=== PATIENT | female | born 1965 | race Caucasian/White ===

== ENCOUNTER → 2016-05-22 | Emergency (ER) | payer OTHER ==
[~2016-05-22] VITALS: Ht 152.4 cm; Wt 56.5 kg
[~2016-05-22] MED LIST: AMLO-26 PO; DOCU-144 PO; HYDR-906 PO; HYDR25SU23 PR; HYDR26CR PR; IBUP800T25 PO; SIMV10TA PO
[2016-05-22 21:07] VITALS: Ht 152.4 cm; Wt 56.5 kg
--- NOTE | 2016-05-23 06:15 | ERD ---
DATE OF SERVICE: HISTORY OF PRESENT ILLNESS: The patient is a 51-year-old female coming in complaining of rectal ble eding for the last 3 weeks. The patient states that after she has a bowel movement, she notices nidia ght red blood on the paper. She does not feel that she strains more than normal. She has some pain when she passes stool. She has not used medication around the rectum, no purulence and denies any abdominal pain or fevers. Denies vomiting, denies changes in urination. PAST MEDICAL HISTORY: Hypertension. ALLERGIES: PENICILLIN. SURGICAL HISTORY: Hysterectomy. REVIEW OF SYSTEMS: A 12-point review of systems was done. Refer to HPI for positives, all other sy stems negative. PHYSICAL EXAMINATION VITAL SIGNS: Temperature is 97.9, pulse 85, blood pressure 151/73, respiratory rate 18, O2 saturati on 100% on room air. Pain intensity of 5/10. GENERAL: The patient is well-appearing, well-nourished, no acute distress. HEART: Regular rate and rhythm. No murmurs, clicks, rubs or gallops. No S3 or S4. CHEST: Clear to auscultation bilaterally. There are no rales, wheezes or rhonchi. HEENT: Atraumatic. Conjunctivae are pink. Pupils equal, round, and reactive to light. There is no s cleral icterus. Tympanic membranes clear bilaterally. Oropharynx clear. No nystagmus or photophobia . ABDOMEN: Soft, nontender and nondistended. Good bowel sounds. No rebound or guarding. No gross misael tonitis. No gross organomegaly or masses. No Pfeiffer sign or McBurney point tenderness. RECTAL: The patient has multiple hemorrhoid skin tags with no sign of thrombosed hemorrhoid. There is no tenderness to palpation around the rectum. No fluctuance and no purulence extracted from the anus. No pain with internal palpation of the rectum. DIAGNOSIS: Hemorrhoids. MEDICAL DECISION MAKING: I have low suspicion for perirectal or perianal abscess. The patient's bl eeding is likely associated with hemorrhoids. I have low suspicion for diverticulitis or colitis. The patient does not have severe abdominal pain on palpation. Vital signs are stable. The patient' s bleeding is noted to be bright red, it is likely associated with hemorrhoids. DISCHARGE: The patient is discharged stable. The patient is given a prescription for Anusol, Colac e, and preparation-H, and told to follow up with primary care within 1 to 2 days for reevaluation. The patient was told if symptoms progress or worsen, to return to the ER. All other questions answe red at time of discharge. Discharge summary given at the time of departure. The patient understood and complied with plan. Dictated By: LISA RODRÍGUEZ/JOSSELIN Conf#: [id number] DID#: [id number]
== END | disposition home or self-care (01) ==
LOC: FTE 20:07
DX: K64.4 Residual hemorrhoidal skin tags (principal); I10 Essential (primary) hypertension
CPT/HCPCS: 99284

== ENCOUNTER 2016-06-13 09:01 | Emergency (ER) | payer OTHER ==
[~2016-06-13] VITALS: Ht 157.5 cm; Wt 54.1 kg
[2016-06-13 09:04] VITALS: Ht 157.5 cm; Wt 54.1 kg
[2016-06-13 09:26] VITALS: TEMP 97.6
[2016-06-13] MEDS ORDERED: LIDOCAINE/MYLANTA 40 ML BTL PO STA (09:27)
[2016-06-13 09:52] LABS: ADD SCAN DIFF NO
[2016-06-13 09:59] LABS: BASOPHILS % 0.6 % (0.0-2.0); EOSINOPHILS # 0.1 10^3/ul (0.0-0.5); EOSINOPHILS % 1.2 % (0.0-7.0); HEMATOCRIT 44.7 % (37.0-47.0); HEMOGLOBIN 15.4 g/dl (12.0-16.0); LYMPHOCYTES # 2.2 10^3/ul (0.8-2.9); LYMPHOCYTES % 30.2 % (15.0-51.0); MEAN CORPUSCULAR HEMOGLOBIN 30.3 pg (29.0-33.0); MEAN CORPUSCULAR HGB CONC 34.5 g/dl (32.0-37.0); MEAN CORPUSCULAR VOLUME 87.8 fl (82.0-101.0); MEAN PLATELET VOLUME 11.9 fl (7.4-10.4); MONOCYTE # 0.6 10^3/ul (0.3-0.9); MONOCYTES % 8.4 % (0.0-11.0); NEUTROPHIL # 4.3 10^3/ul (1.6-7.5); NEUTROPHILS % 59.3 % (39.0-77.0); PLATELET COUNT 205 10^3/UL (140-415); RED BLOOD COUNT 5.09 10^6/ul (4.20-5.40); RED CELL DISTRIBUTION WIDTH 12.2 % (11.5-14.5); WHITE BLOOD COUNT 7.2 10^3/ul (4.8-10.8)
--- NOTE | 2016-06-13 10:06 | RADRPT ---
PROCEDURE: US Abdomen. CLINICAL INDICATION: abdominal pain TECHNIQUE: Multiple real-time images were acquired of the patient's right upper quadrant abdomen a nd retroperitoneum utilizing a high resolution transducer. COMPARISON: 05/20/15 FINDINGS: The liver demonstrates normal echogenicity. The liver is normal in size and no focal solid lesions are seen. The liver measures 13.6 cm in length. The portal vein is patent with normal direction of f low. No intrahepatic biliary dilatation is seen. No gallstones are identified within the gallbladder. There is no pericholecystic fluid or gallbladd er wall thickening. The common bile duct measures 3 mm in maximal dimension. The visualized portions of the pancreas are unremarkable. The tail of the pancreas is not seen. No free fluid is identified. The right kidney is normal in size, and demonstrate normal echogenicity and cortical thickness. The right kidney measures 10.2 cm in long dimension. There is no evidence of hydronephrosis. There are no kidney stones. RPTAT: AA IMPRESSION: Unremarkable right upper quadrant abdominal ultrasound. .Deo Hernandez MD, Date Time Electronically viewed and signed by .Deo Hernandez MD, on 06/13/2016 10:06 .S/
[2016-06-13 10:09] LABS: ALBUMIN 4.5 g/dl (3.3-4.9); CHLORIDE 104 mmol/L (97-110); POTASSIUM 3.4 mmol/L (3.5-5.1); SODIUM 143 mmol/L (135-144)
[2016-06-13 10:11] LABS: ANION GAP 14 (8-16); CARBON DIOXIDE 28 mmol/L (21-31); CREATININE 0.61 mg/dl (0.44-1.00)
[2016-06-13 10:12] LABS: ALANINE AMINOTRANSFERASE 26 IU/L (13-69); ALBUMIN/GLOBULIN RATIO 1.18; ALKALINE PHOSPHATASE 108 IU/L (42-121); ASPARTATE AMINO TRANSFERASE 22 IU/L (15-46); BILIRUBIN,INDIRECT 0.4 mg/dl (0-1.1); BILIRUBIN,TOTAL 0.4 mg/dl (0.2-1.3); BLOOD UREA NITROGEN 14 mg/dl (7-20); CALCIUM 9.4 mg/dl (8.4-10.2); GLUCOSE 108 mg/dl (70-220); TOTAL PROTEIN 8.3 g/dl (6.1-8.1)
[2016-06-13 10:13] LABS: ADD UMIC YES; URINE BILIRUBIN (Dip) NEGATIVE (NEGATIVE); URINE BLOOD (Dip) 2+ (NEGATIVE); URINE COLOR LT. YELLOW (YELLOW); URINE GLUCOSE (Dip) NEGATIVE (NEGATIVE); URINE KETONES (Dip) NEGATIVE (NEGATIVE); URINE LEUKOCYTE ESTERASE (Dip) NEGATIVE (NEGATIVE); URINE NITRITE (Dip) NEGATIVE (NEGATIVE); URINE TOTAL PROTEIN (Dip) NEGATIVE (NEGATIVE); URINE UROBILINOGEN (Dip) 0.2 E.U./dL (0.1-1.0)
[2016-06-13 10:23] LABS: URINE RBCS 0-2 /HPF (0)
[2016-06-13 10:38] LABS: TROPONIN-I < 0.012 ng/ml (0.00-0.12)
[2016-06-13] MEDS ORDERED: HYDR-906 PO (11:00)
[2016-06-13] MEDS ORDERED: ONDA4TAB14 PO (11:00)
[2016-06-13] MEDS ORDERED: PANT40TA3 PO (11:01)
--- NOTE | 2016-06-13 11:01 | ERD ---
ER Documentation Chief Complaint Date/Time DATE: 06/13/16 TIME: 11:00 Chief Complaint ap/ burnning sensation x 5 days HPI Patient is a 51-year-old female with gastritis and hypertension who presents with abdominal pain. She has had epigastric pain for the past 4 days. She said that she has "gastritis". The pain comes and goes. She said that she tried "a pill" yesterday but does not know what the pill was. She has had no fevers. She has no nausea, vomiting, or diarrhea. Upon review of old medical records this the patient's ninth visit to the ER since 2007. Her primary doctor is Dr. Dillon Lai. ROS All systems reviewed and are negative except as per history of present illness. Medications Home Meds Active Scripts Pantoprazole* (Protonix*) 40 Mg Tablet.dr, 40 MG PO DAILY, #20 TAB Prov:JASWANT MCCORMACK MD 06/13/16 Ondansetron (Ondansetron Odt) 4 Mg Tab.rapdis, 4 MG PO Q6H Y for NAUSEA AND/OR VOMITING, #30 TAB Prov:JASWANT MCCORMACK MD 06/13/16 Hydrocodone/Acetaminophen ([place] 5-325 Tablet) 1 Each Tablet, 1 TAB PO Q6H Y for PAIN, #7 TAB Prov:JASWANT MCCORMACK MD 06/13/16 Hydrocortisone* Rectal (Preparation H* Cream) 1% - 26 Gm Cream.gm., 1 APPLIC GA BID, #1 TUB Prov:BRANDEE PIRES PA-C 05/22/16 Hydrocortisone Acetate (Anusol-Hc) 25 Mg Supp.rect, 1 SUPP GA QHS Y for HEMORROID PAIN/ITCHING, #12 SUPP.RECT Prov:BRANDEE PIRES PA-C 05/22/16 Ibuprofen* (Motrin*) 800 Mg Tab, 800 MG PO Q6H Y for PAIN AND OR ELEVATED TEMP, #30 TAB Prov:LISA PINEDA DO 03/14/16 Reported Medications Simvastatin* (Zocor*) 10 Mg Tablet, 10 MG PO QHS, #30 TAB 03/14/16 Amlodipine-Benazepril (Amlodipine-Benazepril) 5-10 Mg Tablet, 1 CAP PO DAILY, # 30 CAP 08/30/15 Discontinued Scripts Docusate Sodium* (Colace*) 100 Mg Capsule, 100 MG PO DAILY, #30 CAP Prov:BRANDEE PIRES PA-C 05/22/16 Hydrocodone/Acetaminophen ([place] 5-325 Tablet) 1 Each Tablet, 1 TAB PO Q6H Y for PAIN, #10 TAB Prov:LISA PINEDA 03/14/16 Allergies Allergies: Coded Allergies: Penicillins (Verified Allergy, Unknown, 03/14/16) PMhx/Soc History of Surgery: Yes (HYSTERECTOMY) Anesthesia Reaction: No Hx Neurological Disorder: No Hx Respiratory Disorders: No Hx Cardiac Disorders: Yes (HTN , HIGH CHOLESTEROL ) Hx Psychiatric Problems: No Hx Miscellaneous Medical Probl: No Hx Alcohol Use: No Hx Substance Use: No Hx Tobacco Use: No FmHx Family History: No diabetes Physical Exam Vitals Vital Signs Date Time Temp Pulse Resp B/P Pulse Ox O2 Delivery O2 Flow Rate FiO2 06/13/16 11:17 79 16 133/73 100 06/13/16 09:26 97.6 96 11 131/74 100 Room Air 06/13/16 09:04 98.1 82 18 148/64 99 Physical Exam Const: Mild distress secondary to pain Head: Atraumatic Eyes: Normal Conjunctiva ENT: Normal External Ears, Nose and Mouth. Neck: Full range of motion..~ No meningismus. Resp: Clear to auscultation bilaterally Cardio: Regular rate and rhythm, no murmurs Abd: Soft, epigastric pain without rebound or guarding Skin: No petechiae or rashes Back: No midline or flank tenderness Ext: No cyanosis, or edema Neur: Awake and alert Psych: Normal Mood and Affect Result Diagram: 06/13/1693606/13/16936 Results 24 hrs Laboratory Tests Test 06/13/16 09:37 White Blood Count 7.210^3/ul Red Blood Count 5.0910^6/ul Hemoglobin 15.4g/dl Hematocrit 44.7% Mean Corpuscular Volume 87.8fl Mean Corpuscular Hemoglobin 30.3pg Mean Corpuscular Hemoglobin Concent 34.5g/dl Red Cell Distribution Width 12.2% Platelet Count 24638^3/UL Mean Platelet Volume 11.9fl Neutrophils % 59.3% Lymphocytes % 30.2% Monocytes % 8.4% Eosinophils % 1.2% Basophils % 0.6% Nucleated Red Blood Cells % 0.0/100WBC Neutrophils # 4.310^3/ul Lymphocytes # 2.210^3/ul Monocytes # 0.610^3/ul Eosinophils # 0.110^3/ul Basophils # 0.010^3/ul Nucleated Red Blood Cells # 0.010^3/ul Urine Color LT. YELLOW Urine Clarity CLEAR Urine pH 6.5 Urine Specific [place] 1.015 Urine Ketones NEGATIVE Urine Nitrite NEGATIVE Urine Bilirubin NEGATIVE Urine Urobilinogen 0.2 E.U./dL Urine Leukocyte Esterase NEGATIVE Urine Microscopic RBC 0-2/HPF Urine Microscopic WBC 0-2/HPF Urine Hemoglobin 2+ Urine Glucose NEGATIVE% Urine Total Protein NEGATIVE Sodium Level 143mmol/L Potassium Level 3.4mmol/L Chloride Level 104mmol/L Carbon Dioxide Level 28mmol/L Anion Gap 14 Blood Urea Nitrogen 14mg/dl Creatinine 0.61mg/dl Glucose Level 108mg/dl Calcium Level 9.4mg/dl Total Bilirubin 0.4mg/dl Direct Bilirubin 0.00mg/dl Indirect Bilirubin 0.4mg/dl Aspartate Amino Transf (AST/SGOT) 22IU/L Alanine Aminotransferase (ALT/SGPT) 26IU/L Alkaline Phosphatase 108IU/L Troponin I < 0.012ng/ml Total Protein 8.3g/dl Albumin 4.5g/dl Globulin 3.80g/dl Albumin/Globulin Ratio 1.18 Lipase 42U/L Current Medications Medications (Trade) Dose Ordered Sig/Leanne Route PRN Reason Start Time Stop Time Status Last Admin Dose Admin Miscellaneous Medication (Gi Cocktail (2)) 40 ml ONCE STAT PO 06/13/16 09:27 06/13/16 09:29 DC 06/13/16 10:17 Procedures/MDM EKG read by me: Rate/Rhythm: Regular rate and rhythm at a rate of 82 Intervals: Normal Impression: No evidence of ischemia or arrhythmia Ultrasound is negative per radiology. Patient is a 51-year-old female who presents with epigastric pain. Her EKG is negative. Ultrasound is negative. Laboratory studies are basically normal. At this point I doubt acute coronary syndrome, cholecystitis, pink otitis, appendicitis, or bowel obstruction. I believe outpatient management is appropriate but the patient will need close follow-up with her primary doctor within 12-24 hours. She will be given a prescription for symptomatic relief. She can return for any worsening symptoms. She will be given Protonix for acid reduction. She was given copies of her laboratory studies and ultrasound report prior to discharge. Departure Diagnosis: Primary Impression: Abdominal pain Abdominal location: epigastric Qualified Code: R10.13 - Epigastric pain Condition: Fair Patient Instructions: Abdominal Pain Additional Instructions: Visite a [facility] para un EXAMEN.Regrese a estas instalaciones si no se mejora marylu esperbamos o marylu le latonyas. JASWANT MCCORMACK MD Jun 13, 2016 11:01
[2016-06-13 11:17] VITALS: BP 133/73; PULSE 79; RESP 16
== END 2016-06-13 11:19 | disposition home or self-care (01) ==
LOC: E/R 09:01
DX: R10.13 Epigastric pain (principal); I10 Essential (primary) hypertension; R40.2142 Coma scale, eyes open, spontaneous, at arrival to emergency department; R40.2362 Coma scale, best motor response, obeys commands, at arrival to emergency department; R40.2252 Coma scale, best verbal response, oriented, at arrival to emergency department
CPT/HCPCS: 76705; 80053; 81001; 81003; 83690; 84484; 85025; 93005; Z7610; 36415

== ENCOUNTER 2017-07-04 18:38 | Inpatient (IN) | END 2017-07-06 14:45 | disposition home or self-care (01) | DRG 343 ==

== ENCOUNTER 2017-09-01 20:27 | Emergency (ER) | END 2017-09-02 02:30 | disposition home or self-care (01) ==

== ENCOUNTER 2018-03-25 19:24 | Emergency (ER) | payer OTHER ==
[~2018-03-25] VITALS: Wt 58.3 kg
[~2018-03-25 19:24] MED LIST changes: -AMLO-26 PO; +AMLO5TAB4 PO; -DOCU-144 PO; +ESOM40CA PO; -HYDR-906 PO; -HYDR25SU23 PR; -HYDR26CR PR; +IBUP-1542 PO; -IBUP800T25 PO; +SIME80TA60 PO
--- NOTE | 2018-03-25 22:10 | ERD ---
ER Documentation Chief Complaint Chief Complaint LEFT SHOULDER PAIN HPI The patient is a 53-year-old female, presenting to the ER because of left shoulder pain radiating to the left-sided neck around 5 PM, worse with movement, denies similar symptoms previously, denies headache, facial pain, neck pain, chest pain, dyspnea, abdominal pain, vomiting, dysuria, diarrhea. She has been using ice pack with some response, denies smoking or drinking Past medical history: Dyslipidemia, hypertension Past surgical history: Hysterectomy, appendectomy ROS All systems reviewed and are negative except as per history of present illness. Medications Home Meds Active Scripts Ibuprofen* (Motrin*) 600 Mg Tab, 600 MG PO Q6H PRN for PAIN AND OR ELEVATED TEMP, #30 TAB Prov:ROSAMARIA SÁNCHEZ MD 03/25/18 Carisoprodol* (Soma*) 350 Mg Tablet, 350 MG PO TID PRN for MUSCLE SPASMS, #15 TAB Prov:ROSAMARIA SÁNCHEZ MD 03/25/18 Ibuprofen* (Motrin*) 600 Mg Tab, 600 MG PO Q6H PRN for PAIN AND OR ELEVATED TEMP, #30 TAB Prov:ROSAMARIA SÁNCHEZ MD 03/25/18 Ibuprofen* (Motrin*) 600 Mg Tab, 600 MG PO Q6, #30 TAB Prov:OMAR ORNELAS PA-C 09/02/17 Reported Medications Simethicone* (Mylicon*) Unknown Strength Tab, 1 TAB PO NEEDED PRN for BOWEL PREP, TAB 07/04/17 Esomeprazole Mag Trihydrate (Nexium) 40 Mg Capsule.dr, 40 MG PO BID, #60 CAP 07/04/17 Simvastatin* (Zocor*) 10 Mg Tablet, 10 MG PO QHS, #30 TAB 07/04/17 Amlodipine Besylate* (Norvasc*) 5 Mg Tablet, 5 MG PO DAILY, TAB 07/04/17 Allergies Allergies: Coded Allergies: Penicillins (Verified Allergy, Unknown, 09/01/17) PMhx/Soc History of Surgery: Yes (hysterectomy 2007, appendectomy 2017) Anesthesia Reaction: No Hx Neurological Disorder: No Hx Respiratory Disorders: No Hx Cardiac Disorders: Yes (HTN, Hyperlipidemia) Hx Psychiatric Problems: No Hx Miscellaneous Medical Probl: No Hx Alcohol Use: No Hx Substance Use: No Hx Tobacco Use: No Physical Exam Vitals Vital Signs Date Temp Pulse Resp B/P (MAP) Pulse Ox O2 O2 Flow FiO2 Time Delivery Rate 03/25/18 98.1 110 15 135/76 100 Room Air 22:04 (95) 03/25/18 98.8 140 20 153/78 98 19:30 (103) Physical Exam Const: No acute distress. Head: Atraumatic. Eyes: Normal Conjunctiva. ENT: Normal External Ears, Nose and Mouth. Neck: Full range of motion. No meningismus. Resp: Clear to auscultation bilaterally. Cardio: Regular rate and rhythm. Abd: Soft, non distended, normal bowel sounds, non tender. Skin: No petechiae or rashes. Back: No midline or flank tenderness. Ext: No cyanosis, or edema. Left shoulder with minimal discomfort, full range of motion, no erythema/crepitus/ skin lesion Neur: Awake and alert. No focal deficit Psych: Normal Mood and Affect. Results 24 hrs Current Medications Medications Dose Sig/Leanne Start Time Status Last (Trade) Ordered Route PRN Stop Time Admin Dose Reason Admin Ketorolac 60 mg ONCE STAT 03/25/18 DC Tromethamine IM 22:35 (Toradol) 03/25/18 22:36 Procedures/MDM MEDICAL MAKING DECISION: The patient is a 53-year-old female, presenting with acute left shoulder pain, treated with Toradol 60 mg IM for pain with good re sponse, is stable for outpatient follow-up The differential diagnoses considered include but are not limited to contusion, sprain, internal derangement, cervical radiculopathy Departure Diagnosis: Primary Impression: Left shoulder pain Condition: Good Comments She was discharged with Guido and Baldev I discussed the findings with the patient. I advised the patient to follow-up with the primary physician in about 2-3 days, sooner if needed and return if any concern. Disclaimer: Inadvertent spelling and grammatical errors are likely due to EHR/dictation software use and do not reflect on the overall quality of patient care. Also, please note that the electronic time recorded on this note does not necessarily reflect the actual time of the patient encounter. ROSAMARIA SÁNCHEZ MD Mar 25, 2018 22:10
[2018-03-25] MEDS ORDERED: IBUP-1542 PO ×2 (22:34→22:50)
[2018-03-25] MEDS ORDERED: CARI350T PO (22:34)
[2018-03-25] MEDS ORDERED: KETOROLAC 60 MG INJ IM STA (22:35)
[2018-03-25 23:21] VITALS: BP 123/74; PULSE 93; RESP 17
== END 2018-03-25 23:21 | disposition home or self-care (01) ==
LOC: E/R 19:24
DX: M25.512 Pain in left shoulder (principal); I10 Essential (primary) hypertension
CPT/HCPCS: 96372; J1885; Z7502

== ENCOUNTER 2018-04-03 08:59 | Emergency (ER) | payer OTHER ==
[~2018-04-03] VITALS: Ht 157.5 cm; Wt 57.3 kg
[~2018-04-03 08:59] MED LIST changes: +CARI350T PO; -ESOM40CA PO; -SIME80TA60 PO
[2018-04-03 09:07] VITALS: Ht 157.5 cm; Wt 57.3 kg
--- NOTE | 2018-04-03 09:20 | ERD ---
ER Documentation Chief Complaint Chief Complaint pt bib family with c/o chest/left arm pain x 7-10 days HPI 53-year-old female with a history of hypertension and hyperlipidemia presents to the ED complaining of 2-day history of worsening, unprovoked sharp and pressure- like, left upper chest pain which radiates to her arm and upper back. Pain is moderate and exacerbated by breathing and movement. Mild shortness of breath but no nausea, vomiting or diaphoresis. No relieving factors. Patient also complains of a 2-week history of cough productive of whitish sputum. Denies URI symptoms, rhinorrhea, sore throat or body aches. No fevers or chills. Denies abdominal pain or back pain. No headache, visual changes, focal weakness or numbness. No fevers or chills. Patient was evaluated in the ED on March 25, 2017 for left shoulder pain. ROS All systems reviewed and are negative except as per history of present illness. Medications Home Meds Active Scripts Azithromycin* (Zithromax*) 250 Mg Tablet, 250 MG PO DAILY for 4 Days, TAB Prov:NINI MONSON MD 04/03/18 Ibuprofen* (Motrin*) 600 Mg Tab, 600 MG PO Q6 PRN for PAIN, #30 TAB Prov:NINI MONSON MD 04/03/18 Reported Medications Simvastatin* (Zocor*) 10 Mg Tablet, 10 MG PO QHS, #30 TAB 07/04/17 Amlodipine Besylate* (Norvasc*) 5 Mg Tablet, 5 MG PO DAILY, TAB 07/04/17 Discontinued Scripts Ibuprofen* (Motrin*) 600 Mg Tab, 600 MG PO Q6H PRN for PAIN AND OR ELEVATED TEMP, #30 TAB Prov:ROSAMARIA SÁNCHEZ MD 03/25/18 Carisoprodol* (Soma*) 350 Mg Tablet, 350 MG PO TID PRN for MUSCLE SPASMS, #15 T AB Prov:ROSAMARIA SÁNCHEZ MD 03/25/18 Ibuprofen* (Motrin*) 600 Mg Tab, 600 MG PO Q6H PRN for PAIN AND OR ELEVATED TEMP, #30 TAB Prov:ROSAMARIA SÁNCHEZ MD 03/25/18 Ibuprofen* (Motrin*) 600 Mg Tab, 600 MG PO Q6, #30 TAB Prov:OMAR ORNELAS PA-C 09/02/17 Allergies Allergies: Coded Allergies: Penicillins (Unverified Allergy, Unknown, 04/03/18) PMhx/Soc Reviewed in chart. As per HPI. History of Surgery: Yes (HYSTERECTOMY ) Anesthesia Reaction: No Hx Neurological Disorder: No Hx Respiratory Disorders: No Hx Cardiac Disorders: Yes (HTN) Hx Psychiatric Problems: No Hx Miscellaneous Medical Probl: No Hx Alcohol Use: No Hx Substance Use: No Hx Tobacco Use: No FmHx Hypertension but no sudden cardiac or stroke Physical Exam Vitals Vital Signs Date Temp Pulse Resp B/P (MAP) Pulse Ox O2 O2 Flow FiO2 Time Delivery Rate 04/03/18 80 17 125/78 100 Room Air 15:32 (94) 04/03/18 83 17 117/69 100 Room Air 13:33 (85) 04/03/18 98.6 91 17 138/73 100 Room Air 09:33 (94) 04/03/18 97.3 88 16 125/62 100 09:07 (83) Physical Exam Const: No acute distress Head: Atraumatic Eyes: Normal Conjunctiva ENT: Normal External Ears, Nose and Mouth. Neck: Full range of motion. Nontender. No JVD. Resp: Breath sounds are equal and clear to auscultation bilaterally Cardio: Regular rate and rhythm, no murmurs Abd: Soft, non tender, non distended. Normal bowel sounds Skin: No petechiae or rashes Back: No midline or flank tenderness Ext: No cyanosis, or edema. Pulses 4+ in all extremities. Neur: Awake and alert Psych: Anxious but not depressed. Result Diagram: 04/03/1893704/03/18937 Results 24 hrs Laboratory Tests Test 04/03/18 09:38 04/03/18 14:55 White Blood Count 10.3 10^3/ul Red Blood Count 4.66 10^6/ul Hemoglobin 13.9 g/dl Hematocrit 41.1 % Mean Corpuscular Volume 88.2 fl Mean Corpuscular Hemoglobin 29.8 pg Mean Corpuscular Hemoglobin Concent 33.8 g/dl Red Cell Distribution Width 12.0 % Platelet Count 280 10^3/UL Mean Platelet Volume 12.2 fl Immature Granulocytes % 0.400 % Neutrophils % 55.8 % Lymphocytes % 34.9 % Monocytes % 6.2 % Eosinophils % 2.2 % Basophils % 0.5 % Nucleated Red Blood Cells % 0.0 /100WBC Immature Granulocytes # 0.040 10^3/ul Neutrophils # 5.7 10^3/ul Lymphocytes # 3.6 10^3/ul Monocytes # 0.6 10^3/ul Eosinophils # 0.2 10^3/ul Basophils # 0.1 10^3/ul Nucleated Red Blood Cells # 0.0 10^3/ul Prothrombin Time 13.0 Sec Prothrombin Time Ratio 1.0 INR International Normalized Ratio 0.97 Activated Partial Thromboplast Time 32.9 Sec D-Dimer 1892.87 ng/ml D-Dimer Comment Sodium Level 143 mmol/L Potassium Level 3.3 mmol/L Chloride Level 105 mmol/L Carbon Dioxide Level 25 mmol/L Anion Gap 13 Blood Urea Nitrogen 12 mg/dl Creatinine 0.61 mg/dl Est Glomerular Filtrat Rate mL/min > 60 mL/min Glucose Level 114 mg/dl Calcium Level 9.8 mg/dl Total Bilirubin 0.2 mg/dl Direct Bilirubin 0.00 mg/dl Indirect Bilirubin 0.2 mg/dl Aspartate Amino Transf (AST/SGOT) 21 IU/L Alanine Aminotransferase (ALT/SGPT) 9 IU/L Alkaline Phosphatase 125 IU/L Creatine Kinase 44 IU/L 42 IU/L Creatine Kinase Index 0.5 0.5 Creatinine Kinase MB (Mass) < 0.22 ng/ml < 0.22 ng/ml Troponin I < 0.012 ng/ml < 0.012 ng/ml Total Protein 8.7 g/dl Albumin 4.4 g/dl Globulin 4.30 g/dl Albumin/Globulin Ratio 1.02 TB Test (QFT) Gold In Tube NEGATIVE TB Test (QFT) Nil 0.02 IU/mL TB Test (QFT) Mitogen Minus Nil 9.85 IU/mL TB Test (QFT) TB - Nil 0.00 IU/mL Current Medications Medications Dose Sig/Leanne Start Time Status Last (Trade) Ordered Route PRN Stop Time Admin Dose Reason Admin Aspirin 325 mg ONCE STAT 04/03/18 DC 04/03/18 (Aspirin) PO 09:29 10:02 04/03/18 09:32 Sodium 1,000 ml @ Q1H STAT 04/03/18 DC Chloride 1,000 mls/hr IV 12:10 04/03/18 13:09 Iohexol 100 ml @ ud STK-MED 04/03/18 DC 04/03/18 ONCE .ROUTE 12:25 12:45 04/03/18 12:26 Sodium 100 ml @ ud STK-MED 04/03/18 DC 04/03/18 Chloride ONCE .ROUTE 12:25 12:45 04/03/18 12:26 IV Flush 10 ml STK-MED 04/03/18 DC 04/03/18 (NS 10 ml) ONCE .ROUTE 12:25 12:45 04/03/18 12:26 500 mg ONCE ONCE 04/03/18 DC 04/03/18 Azithromycin PO 15:00 15:30 (Zithromax) 04/03/18 15:01 Procedures/MDM DOCUMENTS REVIEWED: ED nurse, prior ED, prior records EKG: Time: 0 911. Sinus rhythm. Ventricular rate 89. Normal SC and QRS. No acute ST segment elevation or depression. No ectopy. My Interpretation IMAGING: PROCEDURE: XR Chest. CLINICAL INDICATION: Cough TECHNIQUE: Frontal chest x-ray was obtained. COMPARISON: Chest x-ray March 14, 2016 FINDINGS: The heart is not enlarged. Mediastinum is not widened. No hilar masses seen. Patchy infiltrate is seen in the central left lower lung field.. There is no effusion or pneumothorax. The osseous structures appear normal. IMPRESSION: Patchy infiltrate left lower lung field - rule out pneumonia. .Rosas Lechuga MD, MD Date Time Electronically viewed and signed by .Rosas Lechuga MD, MD on 04/03/2018 09:53 .A/ PROCEDURE: CTA Chest. CLINICAL INDICATION: chest pain TECHNIQUE: The study was performed utilizing a multidetector CT scanner. Direct spiral 1 mm axial sections were obtained from the thoracic inlet to the upper abdomen with the use of 100 cc of Omnipaque 350 nonionic intravenous contrast material and reformatted at 3 mm. Coronal, sagittal and 3-D angiographic reformations were obtained. The images were reviewed on a PACS workstation. CT D I 28 mCi Dose 314 mGy/cm Individualized dose optimization technique was used for the performance of this exam. This included 1. Automated exposure control. 2. Adjustment of the mA and / or kV according to the patient's size. 3. Use of iterative reconstruction technique. COMPARISON: CT angiogram chest September 02, 2017 FINDINGS: There is no central or peripheral pulmonary embolism. Thoracic aorta is normal with no dissection or aneurysm. No lung infiltrate or mass is seen. There is atelectasis of the inferior segment of the lingula. Minimal interstitial inf iltrate is seen on the posterior aspect of the left upper lobe. There is no hilar or mediastinal adenopathy or mass. There are visible but nonpathologically enlarged anterior mediastinal and left hilar nodes. There is a small left pleural effusion with atelectasis deep in the costophrenic recess. No pericardial effusion is visualized. There is no pneumothorax. No upper abdominal or adrenal mass is present. The osseous structures appear normal. IMPRESSION: No pulmonary embolism. No thoracic aortic aneurysm or dissection. No pneumonia. Atelectasis inferior aspect lingula. Small left pleural effusion with atelectasis deep in the costophrenic recess. .Rosas Lechuga MD, MD Date Time Electronically viewed and signed by .Rosas Lechuga MD, on 04/03/2018 12:49 .A/ [employer]-year-old female with a history of hypertension and hyperlipidemia presents to the ED complaining of 2-day history of worsening, unprovoked sharp and pressure-like, left upper chest pain which radiates to her arm and upper back. CBC unremarkable for leukocytosis or anemia. Chemistry reveals mild hypokalemia but no renal insufficiency or hyperglycemia. D-dimer significantly elevated. EKG negative for ischemic changes or cardiac dysrhythmia. CT pulmonary angiogram to evaluate for pulmonary embolism and to further evaluate infiltrate seen on the plain radiograph. There is no evidence of pulmonary embolism. Minimal interstitial infiltrate of the left upper posterior lobe and a small pleural effusion is identified. Etiology of the patient's symptoms is unclear. Possible pneumonia although there is no fever, cough or leukocytosis. Evaluation for acute coronary syndrome was performed. The HEART score was utilized for risk stratification and found to be = 2. Repeat EKG and troponin @ 3 hours were unchanged. Based on this evaluation the patients risk of major adverse cardiac events is <1%. ACS is unlikely. An occult neoplasm is considered. Findings may also be related to patient's previously diagnosed left shoulder pain and atelectasis from splinting. QuantiFERON gold is ordered to rule out TB. Patient will be treated with appro priate analgesics and antibiotics for possible community-acquired pneumonia. Shared decision making occurred with patient and the decision has been made to discharge the patient for outpatient evaluation and functional study within 72 hours. Supratentorial component including depression and anxiety is considered. Stable for discharge with precautionary instructions and close outpatient follow-up as counseled. The patient presents with chest pain and I considered pulmonary embolism, aortic dissection, pneumothorax among other diagnoses. Counseled patient regarding diagnostic workup, diagnosis and need for followup. Understands to return to ED if symptoms recur, worsen or any other concerns. Departure Diagnosis: Primary Impression: Chest pain with low risk for cardiac etiology Additional Impression: Pleural effusion, left Condition: Stable (With mandatory outpatient follow-up as counseled) NINI MONSON MD Apr 03, 2018 09:20
[2018-04-03] MEDS ORDERED: ASPIRIN 325 MG TAB PO STA (09:29)
[2018-04-03] MEDS ORDERED: SOD CHLORIDE 0.9% 1,000 ML IV STA (12:10)
[2018-04-03] MEDS ORDERED: IOHEXOL 100 ML ONE (12:25)
[2018-04-03] MEDS ORDERED: SOD CHLORIDE 0.9% 100 ML ONE (12:25)
[2018-04-03] MEDS ORDERED: AZIT250T PO (14:41)
[2018-04-03] MEDS ORDERED: IBUP-1542 PO (14:41)
[2018-04-03] MEDS ORDERED: AZITHROMYCIN 250 MG TAB PO ONE (15:00)
[2018-04-03 15:32] VITALS: BP 125/78; PULSE 80; RESP 17
== END 2018-04-03 15:32 | disposition home or self-care (01) ==
LOC: E/R 08:59
DX: J90 Pleural effusion, not elsewhere classified (principal); I10 Essential (primary) hypertension
CPT/HCPCS: 36415; 71045; 71275; 80053; 82550; 82553; 84484; 85025; 85378; 85610; 85730; 86480; 93005; J7030; Q9967; Z7502; Z7610